=== PATIENT | male | born 1985 | race American Indian/Alaskan Native ===

== ENCOUNTER 2021-06-30 17:57 | Emergency (ER) | payer SELFPAY ==
[2021-06-30] MEDS ORDERED: IBUPROFEN 600 MG TAB PO ONE ×2 (20:44→22:58)
--- NOTE | 2021-06-30 20:45 | Event Note ---
ED Screening Note ED Screening Note: Patient presents for cough, fever, shortness of breath, fatigue, chills that began a couple days ago He has a history of fatty liver disease and asthma States he is currently under the care of a GI doctor He has not been vaccinated for COVID-19 He has not been tested for COVID-19 since becoming ill This initial assessment/diagnostic orders/clinical plan/treatment(s) is/are subject to change based on patients health status, clinical progression and re- assessment by fellow clinical providers in the ED. Further treatment and workup at subsequent clinical providers discretion. Patient/guardian urged not to elope from the ED as their condition may be serious if not clinically assessed and managed. Initial orders include: Labs, x-ray, ibuprofen
[2021-06-30 21:20] LABS: Hematocrit 42.1 % (35.5-45.6); Mean Corpuscular HGB Conc 33 % (32-34); Mean Corpuscular Volume 85 fl (84-94); Platelet Count 212 K/mm3 (140-440); Red Blood Count 4.98 M/mm3 (3.65-5.03)
--- NOTE | 2021-06-30 21:25 | XRay Report ---
CHEST 2 VIEWS INDICATION / CLINICAL INFORMATION: fever, cough, SOB X 2 DAYS. COMPARISON: None available. FINDINGS: SUPPORT DEVICES: None. HEART / MEDIASTINUM: No significant abnormality. LUNGS / PLEURA: No significant pulmonary or pleural abnormality. No pneumothorax. ADDITIONAL FINDINGS: No significant additional findings. IMPRESSION: 1. No acute findings. Signer Name: Migel Hilliard MD Signed: 06/30/2021 9:21 PM Workstation Name: [id number]
[2021-06-30 21:38] LABS: Alanine Aminotransferase 62 units/L (7-56); Albumin 4.6 g/dL (3.9-5); BUN/Creatinine Ratio 9; Blood Urea Nitrogen 9 mg/dL (9-20); Calcium 9.3 mg/dL (8.4-10.2); Hemolysis Index 8
--- NOTE | 2021-06-30 23:18 | Emergency Department Report ---
ED General Adult HPI - General Chief complaint: Fever Stated complaint: COVID SYMPTOMS/CP/SOB/CHILLS x2days Time Seen by Provider: 06/30/21 20:44 Source: patient Mode of arrival: Ambulatory Limitations: No Limitations - History of Present Illness Initial comments: 36-year-old male patient with history of asthma and fatty liver disease presents to the emergency department with complaints of fever, myalgias, congestion, sore throat, shortness of breath, and headaches for 2 days. No known sick contacts. No current steroid or antibiotic use. No recent travel. Patient did not receive his COVID-19 vaccination series. He has not been tested for COVID-19 since since symptoms began. He has been taking Claritin with limited relief. Denies nausea, vomiting, diarrhea, abdominal pain, syncope, hemoptysis, wheezing. Denies all other complaints at this time. Severity scale (0 -10): 3 - Related Data Home Medications Medication Instructions Recorded Confirmed Last Taken Albuterol Sulfate [Albuterol 0.63%] 11/09/13 11/09/13 Unknown Cetirizine HCl [Zyrtec] 11/09/13 11/09/13 Unknown Fluticasone Propionate [Flonase] 11/09/13 11/09/13 Unknown Fluticasone/Salmeterol [Advair 11/09/13 11/09/13 Unknown Diskus 500-50 mcg] Montelukast [Singulair] 11/09/13 11/09/13 Unknown Previous Rx's Medication Instructions Recorded Last Taken Type ALBUTEROL NEB's [Proventil 0.083% 2.5 mg IH Q6H PRN #25 neb 11/09/13 Unknown Rx NEBS] Azithromycin [Zithromax Z-RADHA] 250 mg PO DAILY #6 tab 11/09/13 Unknown Rx predniSONE [Deltasone] 20 mg PO TID #15 tablet 11/09/13 Unknown Rx Allergies Allergy/AdvReac Type Severity Reaction Status Date / Time corn Allergy Vomiting Verified 06/30/21 20:43 fat emulsions [From Soyacal] Allergy Unknown Verified 06/30/21 20:43 peanut Allergy Unknown Verified 06/30/21 20:43 ED Review of Systems ROS: Stated complaint: COVID SYMPTOMS/CP/SOB/CHILLS x2days Other details as noted in HPI Other: GENERAL: Positive for fever. ENT: Negative for ear pain, difficulty hearing, sore throat, nasal congestion, epistaxis. CARDIOVASCULAR: Negative for chest pain, palpitations, lower extremity swelling. PULMONARY: Positive for cough. GASTROINTESTINAL: Negative for abdominal pain, nausea, vomiting, diarrhea, constipation. MUSCULOSKELETAL: Positive for myalgias. NEUROLOGICAL: Positive for headache. INTEGUMENTARY: Negative for erythema, rash, diaphoresis, laceration, ecchymosis. HEMATOLOGICAL: Negative for hemoptysis, hematemesis, hematochezia, hematuria. PSYCHIATRIC: Negative for hallucinations, suicidal ideation, homicidal ideation, anxiety, depression. ED Past Medical Hx - Past Medical History Previous Medical History?: Yes Hx Liver Disease: Yes Hx Asthma: Yes - Surgical History Additional Surgical History: left arm - Social History Smoking Status: Never Smoker Substance Use Type: None - Medications Home Medications: Home Medications Medication Instructions Recorded Confirmed Last Taken Type ALBUTEROL NEB's [Proventil 0.083% 2.5 mg IH Q6H PRN #25 neb 11/09/13 Unknown Rx NEBS] Albuterol Sulfate [Albuterol 0.63%] 11/09/13 11/09/13 Unknown History Azithromycin [Zithromax Z-RADHA] 250 mg PO DAILY #6 tab 11/09/13 Unknown Rx Cetirizine HCl [Zyrtec] 11/09/13 11/09/13 Unknown History Fluticasone Propionate [Flonase] 11/09/13 11/09/13 Unknown History Fluticasone/Salmeterol [Advair 11/09/13 11/09/13 Unknown History Diskus 500-50 mcg] Montelukast [Singulair] 11/09/13 11/09/13 Unknown History predniSONE [Deltasone] 20 mg PO TID #15 tablet 11/09/13 Unknown Rx ED Physical Exam - General Limitations: No Limitations - Other Other exam information: General: Awake and alert. No acute distress. Head: Atraumatic, normocephalic. Eyes: EOMI. Pupils are equal and round. Normal sclera and conjunctiva. ENT: Oral mucosa is moist. Normal pharyngeal exam. Neck: Supple. No lymphadenopathy. Pulmonary: No respiratory distress. Clear to auscultation bilaterally. Cardiac: Tachycardic. Pulses are palpable and equal bilaterally. No lower extremity cyanosis or edema. Skin: Warm and dry. No rashes. Abdomen: Soft, non-tender, non-protuberant. No guarding, rigidity, or rebound. Bowel sounds are normal. No organomegaly or masses noted. Back: Normal alignment. No CVA tenderness. Extremities: Symmetrical. Full range of motion intact. Neurological: Alert and oriented, appropriately interactive, no focal deficits. Psych: Cooperative. Appropriate mood and affect. Speech is evenly metered. Thoughts are logically construed. ED Course Vital Signs 06/30/21 06/30/21 20:42 23:35 Temperature 100.4 F H 99.9 F H Pulse Rate 104 H 95 H Respiratory 18 17 Rate Blood Pressure 153/82 Blood Pressure 147/78 [Right] O2 Sat by Pulse 97 99 Oximetry ED Medical Decision Making - Lab Data Result diagrams: 06/30/21 20:52 06/30/21 20:52 - Medical Decision Making Differential diagnosis including but not limited to: pneumonia, asthma exacerbation, pleural effusion, congestive heart failure, influenza, pertussis, viral upper respiratory infection On reevaluation, patient remains stable. No hypoxia, no respiratory distress. Tachycardia resolved. Tolerating oral intake without difficulty. Labs are unremarkable aside from minimally elevated LFTs, consistent with patient's reported history of fatty liver disease. Chest x-ray is negative. COVID-19 testing is currently unavailable at this facility. Suspect viral illness. No clinical indication for further diagnostic work-up on an emergent basis at this time. Patient will be discharged home to continue appropriate symptomatic treatment and referred to primary care provider for close outpatient follow-up. Patient expressed understanding and is agreeable to plan of care. Disease transmission precautions discussed. Strict return precautions provided. Repeat exam is unremarkable and benign. History, exam, diagnostic testing, and current condition do not suggest worrisome pathology to warrant further testing, continued ED treatment, admission, or surgical evaluation at this point. Given the low probability of a significant medical illness, it would be more likely to result in harm than benefit to perform further testing at this stage. Discussed findings, presumptive diagnosis, need for follow-up and specific signs/symptoms that should prompt immediate return to the emergency department. Instructions were explained in detail to the patient in addition to giving written discharge information. Patient expressed understanding and was given the opportunity to ask questions, all of which were satisfactorily answered prior to discharge home. Critical care attestation.: If time is entered above; I have spent that time in minutes in the direct care of this critically ill patient, excluding procedure time. ED Disposition Clinical Impression: Viral illness Disposition: DC-01 TO HOME OR SELFCARE Is pt being admited?: No Does the pt Need Aspirin: No Condition: Stable Instructions: Viral Respiratory Infection, [id number] Additional Instructions: Take Tylenol every 4 hours and Motrin every 8 hours as needed for pain/fever. Use [id number] cough/cold remedies as needed for symptomatic relief. Rest. Drink plenty of fluids. Wash hands frequently to prevent disease transmission. Do not share food or drinks with others. Please adhere to CDC guidelines regarding isolation precautions. Follow-up with your primary care provider this week. Call tomorrow to schedule an appointment. Return to the emergency department immediately for new or worsening symptoms. Specifically, return to the emergency department immediately for worsening pain, dehydration, difficulty breathing, mental status changes, or any other concerns. Referrals: GUANAKITO CORBETT MD [Staff Physician] - 3-5 Days [facility] [Provider Group] - 3-5 Days Forms: Work/School Release Form(ED) Time of Disposition: 23:18
[2021-07-01 00:29] LABS: Anisocytosis 1+; Band Neutrophils # (Manual) 0.1 K/mm3; Total Cells Counted 100
[2021-07-01 00:30] LABS: Platelet Estimate Consistent w Auto
[2021-07-01 06:34] VITALS: BP 147/78
== END 2021-06-30 23:35 | disposition home or self-care (01) ==
LOC: ED 17:57
DX: B34.9 Viral infection, unspecified (principal); J45.909 Unspecified asthma, uncomplicated
CPT/HCPCS: 36415; 71046; 80053; 85007; 85025; 99283